=== PATIENT | female | born 1990 | race Caucasian/White ===

== ENCOUNTER 2021-03-04 16:45 | Emergency (ER) | payer OTHER ==
[~2021-03-04] VITALS: Ht 167.6 cm; Wt 83.9 kg
== END 2021-03-04 17:59 | disposition home or self-care (01) ==
LOC: ER 16:45
DX: S93.401A Sprain of unspecified ligament of right ankle, initial encounter (principal); X50.1XXA Overexertion from prolonged static or awkward postures, initial encounter
CPT/HCPCS: 29515; 73610; 99283-25; A9270